=== PATIENT | female | born 1980 | race Caucasian/White ===

== ENCOUNTER 2021-10-17 07:34 | Inpatient (IN) ==
[2021-10-17] MEDS ORDERED: Clindamycin 900 MG/50 ML 900 MG/50 ML IV.SOLN IVPB ONE (07:53)
[2021-10-17] MEDS ORDERED: Ringers Solution, Lactated 1,000 ML IVC SCH (08:00)
[2021-10-17] MEDS ORDERED: *HR* Rocuronium Bromide 50 MG/5 ML VIAL ONE (08:22)
[2021-10-17] MEDS ORDERED: Lidocaine -MPF 2% 5 ML VIAL ONE (08:22)
[2021-10-17] MEDS ORDERED: Lidocaine HCL 4 ML Topical Solution (Laryng-O-Jet Kit Sterile Pak) TP ONE (08:22)
[2021-10-17] MEDS ORDERED: *HR* Midazolam HCl 2 MG/2 ML VIAL ONE (08:22)
[2021-10-17] MEDS ORDERED: *HR* Succinylcholine 200 MG/10 ML VIAL IVP ONE (08:22)
[2021-10-17] MEDS ORDERED: *HR* Propofol 200 MG/20 ML VIAL IVP ONE (08:22)
[2021-10-17] MEDS ORDERED: *HR* FentaNYL (PF) 100 MCG/2 ML VIAL ONE (08:22)
[2021-10-17] MEDS ORDERED: Acetaminophen IV 1,000 MG/100 ML BAG IVPB ONE (08:56)
[2021-10-17] MEDS ORDERED: Scopolamine Patch 1.5 MG PATCH.TD72 TD ONE (08:56)
[2021-10-17] MEDS ORDERED: *HR* Meperidine 25 MG/ML SYRINGE IVP PRN (09:09)
[2021-10-17] MEDS ORDERED: *HR* HYDROmorphone PF 0.5 MG/0.5 ML SYRINGE IVP PRN (09:09)
[2021-10-17] MEDS ORDERED: Ondansetron 4 MG/2 ML VIAL IVP PRN (09:09)
[2021-10-17] MEDS ORDERED: Promethazine 6.25 MG in Water for inj. (sterile) 20 ML IVPB PRN (09:09)
[2021-10-17] MEDS ORDERED: Albuterol 2.5 MG/3 ML NEBULIZER IH PRN (09:09)
[2021-10-17] MEDS ORDERED: Ondansetron 4 MG/2 ML VIAL ONE (10:03)
[2021-10-17] MEDS ORDERED: Ketorolac 30 MG/ML VIAL ONE (10:03)
[2021-10-17] MEDS ORDERED: *HR* HYDROMORPHONE 2 MG/ML VIAL ONE (10:27)
[2021-10-17] MEDS ORDERED: EPHEDrine 50 MG/ML VIAL ONE (10:33)
[2021-10-17] MEDS ORDERED: Sugammadex Sodium 200 MG/2 ML VIAL IV ONE (11:04)
[2021-10-17] MEDS ORDERED: Naloxone 0.4 MG/ML INJ IVP PRN (11:23)
[2021-10-17] MEDS ORDERED: Ketorolac 30 MG/ML VIAL IVP PRN (11:23)
[2021-10-17] MEDS: *HR* HYDROcodone/Acet 5/325 mg TABLET PO PRN ×3 (13:13→23:38)
[2021-10-17] MEDS: Clindamycin 900 MG/50 ML 900 MG/50 ML IV.SOLN IVPB SCH ×2 (15:30→23:38)
[2021-10-17] MEDS ORDERED: *HR* OxyCODONE Immed Rel 5 MG TABLET PO ONE (15:43)
[2021-10-18 04:53] LABS: Basophils % 0.1 %; Hematocrit 29.1 % (35.3-44.9); Immature Granulocytes % 0.5 % (0-4); Lymphocytes # 1.4 K/mcL (0.6-4.6); Lymphocytes % 10.8 %; Mean Corpuscular Volume 81.3 fL (83.0-100.0); Mean Platelet Volume 10.2 fL (9.4-12.4); Monocytes # 0.8 K/mcL (0.0-1.3); Monocytes % 6.4 %; Neutrophils # 10.9 K/mcL (1.6-8.9); Platelet Count 248 K/mcL (140-400); Red Blood Count 3.58 M/mcL (3.82-4.97); Red Cell Distribution Width 14.6 % (11.5-14.5); Segmented Neutrophils % 82.2 %; White Blood Count 13.2 K/mcL (4.3-11.1)
[2021-10-18 04:55] LABS: Hemoglobin 9.3 g/dL (11.5-15.4)
[2021-10-18 04:59] LABS: BUN/Creatinine Ratio 27 (6-26); Blood Urea Nitrogen 15 mg/dL (6-20); eGFR For African Americans > 60 (> 60); eGFR For Non-African Americans > 60 (> 60)
[2021-10-18] MEDS: *HR* HYDROcodone/Acet 5/325 mg TABLET PO PRN (06:05)
[2021-10-18] MEDS: Clindamycin 900 MG/50 ML 900 MG/50 ML IV.SOLN IVPB SCH (08:28)
[2021-10-18 09:02] VITALS: BP 106/61; PULSE 85; TEMP 98.3; O2SAT 98
== END 2021-10-18 10:00 | disposition home or self-care (01) ==
LOC: SAMDAY 07:34 → 1NENUPED 12:50
PROVIDERS: ADMIT Obstetrics & Gynecology; ATTEND Obstetrics & Gynecology